=== PATIENT | female | born 1935 | race Caucasian/White ===

== ENCOUNTER 2018-08-13 20:22 | Inpatient (IN) ==
[2018-08-13] MEDS ORDERED: Acetaminophen 325 MG Tablet PO ONE (20:52)
[2018-08-13] MEDS ORDERED: MethylPREDNISolone Sod Succinate Inj 125 MG/2 ML Vial IV.PUSH ONE (20:55)
[2018-08-13] MEDS ORDERED: Sod Chloride 0.9% Inj 1,000 ML IV.SIG SCH (21:00)
--- NOTE | 2018-08-13 21:27 | XR ---
EXAM DATE: 08/13/2018 9:19 PM EST AGE/SEX: 83 years / Female INDICATIONS: Fever. CLINICAL DATA: This is the patient's initial encounter. Patient reports that signs and symptoms have been present for 1 day and indicates a pain score of 2/10. MEDICAL/SURGICAL HISTORY: Chronic obstructive pulmonary disease. Current smoker. None. COMPARISON: [facility] – [place], CHEST SINGLE AP, 05/14/2016. . FINDINGS: Frontal view of the chest demonstrates the lungs to be symmetrically hyperaerated aerated, similar to prior. No focal infiltrates seen. The heart is normal in size. The stylet contours are unremarkable. Osseous structures are intact. CONCLUSION: No acute findings. Hyperaerated lungs, stable. Electronically signed by: Sai Small MD Board Certified Radiologist 08/13/2018 9:26 PM EST
[2018-08-13 21:37] LABS: Baso % (Auto) 0.3 % (0.0-2.0); Eos % (Auto) 0.1 % (0.0-4.0); Hematocrit 43.6 % (35.0-46.0); Hemoglobin 14.8 gm/dL (11.6-15.3); Lymph # (Auto) 0.6 th/mm3 (1.0-4.8); Lymph % (Auto) 3.3 % (9.0-44.0); Mean Corpuscular HGB Conc 33.9 % (32.0-36.0); Mean Corpuscular Hemoglobin 31.8 pg (27.0-34.0); Mean Corpuscular Volume 93.7 fL (80.0-100.0); Mean Platelet Volume 9.6 fL (7.0-11.0); Mono # (Auto) 0.9 th/mm3 (0.0-0.9); Mono % (Auto) 4.7 % (0.0-8.0); Neut % (Auto) 91.6 % (16.0-70.0); Platelet Count 248 th/mm3 (150-450); Red Blood Count 4.66 mil/mm3 (4.00-5.30); Red Cell Distribution Width 14.9 % (11.6-17.2); White Blood Count 18.5 th/mm3 (4.0-11.0)
[2018-08-13 21:38] LABS: Bilirubin,Urine Negative (Negative); Clarity,Urine Clear (Clear); Color,Urine Straw (Yellw/Straw); Glucose,Urine (UA) Negative (Negative); Leukocyte Esterase,Urine Trace (Negative); Mucus,Urine Few /lpf (Occasional); Nitrite,Urine Negative (Negative); Squamous Epithelial Cell,Urine <1 /hpf (0-5)
[2018-08-13] MEDS ORDERED: Aztreonam Inj 2 GM in Sodium Chloride 0.9% Inj 100 ML IV.SIG ONE (21:46)
[2018-08-13] MEDS ORDERED: Vancomycin Inj 1,000 MG in Sodium Chlor 0.9% Inj 250 ML IV.SIG ONE (21:46)
[2018-08-13 21:47] LABS: Albumin 3.8 g/dL (3.4-5.0); Anion Gap 7 meq/L (5-15); Aspartate Aminotransferase 29 U/L (15-37); Blood Urea Nitrogen 13 mg/dL (7-18); Calcium 8.9 mg/dL (8.5-10.1); Carbon Dioxide 27.5 meq/L (21.0-32.0); Chloride 103 meq/L (98-107); Glomerular Filtration Rate 86 mL/min (>89); Glucose,Random 122 mg/dL (74-106); Magnesium 1.9 mg/dL (1.5-2.5); Potassium 3.7 meq/L (3.5-5.1); Sodium 137 meq/L (136-145)
[2018-08-13 21:50] LABS: Alanine Aminotransferase 21 U/L (10-53); Alkaline Phosphatase 85 U/L (45-117); Total Protein 7.5 g/dL (6.4-8.2)
--- NOTE | 2018-08-13 21:55 | ED ---
HPI General Chief Complaint: Fever Stated Complaint: Medical,Evac Time Seen by Provider: 08/13/18 20:46 Source: patient Mode of arrival: EMS Limitations: no limitations History of Present Illness HPI Narrative: 83-year-old female came to the emergency room with history of sudden onset of fever and chills this afternoon. Patient says that continued and she started feeling weak and not well. She called EMS and was brought to the emergency room at approximately 8:30 PM. Patient says she has history of COPD and is a smoker. She has had pneumonia in the past. However patient was feeling fine this morning before the chills started. She was nauseous but did not vomit. No history of diarrhea. Patient does not require oxygen at home. She took her medications including her inhaler this morning. Patient is awake and answering questions appropriately. Her temperature was 101 upon arrival. She is slightly tachycardic. Related Data Home Medications Medication Instructions Recorded Confirmed albuterol sulfate 0.63 mg INHALATION QID PRN 08/13/18 08/13/18 enalapril maleate 20 mg PO DAILY 08/13/18 08/13/18 loiyueazvdr-evqqqwdhi-klykqvqs 1 inh INHALATION DAILY 08/13/18 08/13/18 [Trelegy Ellipta] Previous Rx's Medication Instructions Recorded levofloxacin 750 mg PO DAILY #5 tab 08/17/18 nifedipine 30 mg PO DAILY #30 tab 08/17/18 prednisone 20 mg PO DAILY #7 tab 08/17/18 Allergies Allergy/AdvReac Type Severity Reaction Status Date / Time morphine Allergy Severe CONFUSION Verified 08/13/18 20:29 penicillin G Allergy Mild ITCHING,NATALIA Verified 08/13/18 20:29 H amoxicillin Allergy Itching Verified 08/13/18 20:26 Review of Systems ROS: all other systems reviewed are negative [facility] Medical History Medical History COPD (chronic obstructive pulmonary disease) (Acute) Hypertension (Acute) Social History Social History Substance History: No History of Abuse Second Hand Smoke Exposure: No Smoking Status: Current some day smoker Tobacco Type: Cigarettes How Often Do You Have a Drink Containing Alcohol: Never Immunization History Tetanus Immunization: Unsure Exam Narrative Exam Narrative: GENERAL: Awake, alert, elderly, moderate distress, anxious SKIN: Focused skin assessment warm/dry. HEAD: Atraumatic. Normocephalic. EYES: Pupils equal and round. No scleral icterus. No injection or drainage. ENT: No nasal bleeding or discharge. Mucous membranes pink and moist. NECK: Trachea midline. No JVD. CARDIOVASCULAR: Regular rate and rhythm. No murmur appreciated. RESPIRATORY: No accessory muscle use. Bilateral expiratory wheeze with coarse crackles on the left lower base GASTROINTESTINAL: Abdomen soft, non-tender, nondistended. Hepatic and splenic margins not palpable. MUSCULOSKELETAL: No obvious deformities. No clubbing. No cyanosis. No edema. NEUROLOGICAL: Awake and alert. No obvious cranial nerve deficits. Motor grossly within normal limits. Normal speech. PSYCHIATRIC: Appropriate mood and affect; insight and judgment normal. Course Initial Documented Vital Signs Temperature 101.0 F H 08/13/18 20:30 Pulse Rate 101 H 08/13/18 20:30 Respiratory Rate 16 08/13/18 20:30 Blood Pressure 203/41 H 08/13/18 20:30 Pulse Oximetry 94 L 08/13/18 20:30 Last Documented Vital Signs Temperature 98 F 08/18/18 08:00 Pulse Rate 78 08/18/18 08:00 Respiratory Rate 18 08/18/18 08:00 Blood Pressure 150/91 H 08/18/18 08:00 Pulse Oximetry 98 08/18/18 08:00 Critical Care Time Critical Care Time: Yes Total Critical Care Time: 30 Attestation: Aggregate critical care time was 30 minutes. Time to perform other separately billable procedures was not included in the critical care time. My time did not include minutes spent treating any other patients simultaneously or on activities that did not directly contribute to the patient's treatment. The services I provided to this patient were to treat and/or prevent clinically significant deterioration that could result in: Sepsis, sepsis protocol I provided critical care services requiring my management, as noted below: Chart data review, documentation time, medication orders and management, vital sign assessments/reviewing monitor data, ordering and reviewing lab tests, ordering and interpreting/reviewing x-rays and diagnostic studies, care of the patient and discussion of the patient with the admitting physicians. Medical Decision Making MDM Narrative Medical decision making narrative: 9:52 PM patient was given 2 albuterol treatment, IV Solu-Medrol and IV fluid bolus. Blood test results are back and patient has leukocytosis. However rest of her blood tests including lactic acid is within normal limit. Influenza is negative. Awaiting for UA and chest x-ray. I have started her on IV Azactam and IV vancomycin as per sepsis protocol. Patient has penicillin allergy. Patient will require admission. I discussed this with her and she is okay with that plan. Medical Screen Exam Complete: Yes Emergency Medical Condition: Yes Lab Data Result diagrams: 08/15/18 08:36 08/16/18 06:06 Lab Results 08/13/18 08/13/18 08/13/18 Range/Units 21:00 21:00 21:00 WBC 18.5 H (4.0-11.0) th/mm3 RBC 4.66 (4.00-5.30) mil/mm3 Hgb 14.8 (11.6-15.3) gm/dL Hct 43.6 (35.0-46.0) % MCV 93.7 (80.0-100.0) fL MCH 31.8 (27.0-34.0) pg MCHC 33.9 (32.0-36.0) % RDW 14.9 (11.6-17.2) % Plt Count 248 (150-450) th/mm3 MPV 9.6 (7.0-11.0) fL Neut % (Auto) 91.6 H (16.0-70.0) % Lymph % (Auto) 3.3 L (9.0-44.0) % [place] % (Auto) 4.7 (0.0-8.0) % Eos % (Auto) 0.1 (0.0-4.0) % Baso % (Auto) 0.3 (0.0-2.0) % Neut # (Auto) 17.0 H (1.8-7.7) th/mm3 Lymph # (Auto) 0.6 L (1.0-4.8) th/mm3 [place] # (Auto) 0.9 (0.0-0.9) th/mm3 Eos # (Auto) 0.0 (0.0-0.4) th/mm3 Baso # (Auto) 0.0 (0.0-0.2) th/mm3 WBC Differential . Differential Comment Auto diff final Sodium 137 (136-145) meq/L Potassium 3.7 (3.5-5.1) meq/L Chloride 103 (98-107) meq/L Carbon Dioxide 27.5 (21.0-32.0) meq/L Anion Gap 7 (5-15) meq/L BUN 13 (7-18) mg/dL Creatinine 0.66 (0.50-1.00) mg/dL Estimated GFR 86 L (>89) mL/min Random Glucose 122 H (74-106) mg/dL Lactic Acid 1.0 (0.4-2.0) mmol/L Calcium 8.9 (8.5-10.1) mg/dL Magnesium 1.9 (1.5-2.5) mg/dL Total Bilirubin 0.7 (0.2-1.0) mg/dL AST 29 (15-37) U/L ALT 21 (10-53) U/L Alkaline Phosphatase 85 (45-117) U/L Total Protein 7.5 (6.4-8.2) g/dL Albumin 3.8 (3.4-5.0) g/dL Urine Color (Yellw/Straw) Urine Clarity (Clear) Urine pH (5.0-8.5) Ur Specific [place] (1.002-1.035) Urine Protein (Neg-Trace) mg/dL Urine Glucose (UA) (Negative) mg/dL Urine Ketones (Negative) mg/dL Urine Occult Blood (Negative) Urine Nitrate (Negative) Urine Bilirubin (Negative) Urine Urobilinogen (Less than 2) mg/dL Ur Leukocyte Esterase (Negative) Urine RBC (0-3) /hpf Urine WBC (0-5) /hpf Ur Squamous Epith Cells (0-5) /hpf Urine Mucus (Occasional) /lpf Micro UA Comment Ur Microscopic Review Urine Culture Comments 08/13/18 08/14/18 08/14/18 Range/Units 21:00 09:15 09:15 WBC 23.4 H (4.0-11.0) th/mm3 RBC 4.47 (4.00-5.30) mil/mm3 Hgb 14.2 (11.6-15.3) gm/dL Hct 43.2 (35.0-46.0) % MCV 96.6 (80.0-100.0) fL MCH 31.8 (27.0-34.0) pg MCHC 32.9 (32.0-36.0) % RDW 14.9 (11.6-17.2) % Plt Count 236 (150-450) th/mm3 MPV 9.6 (7.0-11.0) fL Neut % (Auto) 92.6 H (16.0-70.0) % Lymph % (Auto) 3.6 L (9.0-44.0) % [place] % (Auto) 3.6 (0.0-8.0) % Eos % (Auto) 0.0 (0.0-4.0) % Baso % (Auto) 0.2 (0.0-2.0) % Neut # (Auto) 21.7 H (1.8-7.7) th/mm3 Lymph # (Auto) 0.8 L (1.0-4.8) th/mm3 [place] # (Auto) 0.8 (0.0-0.9) th/mm3 Eos # (Auto) 0.0 (0.0-0.4) th/mm3 Baso # (Auto) 0.0 (0.0-0.2) th/mm3 WBC Differential . Differential Comment Auto diff final Sodium 141 (136-145) meq/L Potassium 3.6 (3.5-5.1) meq/L Chloride 111 H D (98-107) meq/L Carbon Dioxide 22.2 (21.0-32.0) meq/L Anion Gap 8 (5-15) meq/L BUN 11 (7-18) mg/dL Creatinine 0.67 (0.50-1.00) mg/dL Estimated GFR 84 L (>89) mL/min Random Glucose 141 H (74-106) mg/dL Lactic Acid (0.4-2.0) mmol/L Calcium 8.1 L D (8.5-10.1) mg/dL Magnesium (1.5-2.5) mg/dL Total Bilirubin 0.9 (0.2-1.0) mg/dL AST 27 (15-37) U/L ALT 25 (10-53) U/L Alkaline Phosphatase 77 (45-117) U/L Total Protein 6.7 D (6.4-8.2) g/dL Albumin 3.0 L D (3.4-5.0) g/dL Urine Color Straw (Yellw/Straw) Urine Clarity Clear (Clear) Urine pH 8.0 (5.0-8.5) Ur Specific [place] 1.010 (1.002-1.035) Urine Protein 30 H (Neg-Trace) mg/dL Urine Glucose (UA) Negative (Negative) mg/dL Urine Ketones Trace H (Negative) mg/dL Urine Occult Blood Negative (Negative) Urine Nitrate Negative (Negative) Urine Bilirubin Negative (Negative) Urine Urobilinogen Less than 2 (Less than 2) mg/dL Ur Leukocyte Esterase Trace H (Negative) Urine RBC 1 (0-3) /hpf Urine WBC 9 H (0-5) /hpf Ur Squamous Epith Cells <1 (0-5) /hpf Urine Mucus Few H (Occasional) /lpf Micro UA Comment Culture not ind Ur Microscopic Review Not Reportable Urine Culture Comments Culture not ind 08/15/18 08/15/18 08/16/18 Range/Units 08:36 08:36 06:06 WBC 14.2 H (4.0-11.0) th/mm3 RBC 3.99 L (4.00-5.30) mil/mm3 Hgb 13.0 (11.6-15.3) gm/dL Hct 38.2 (35.0-46.0) % MCV 95.8 (80.0-100.0) fL MCH 32.7 (27.0-34.0) pg MCHC 34.1 (32.0-36.0) % RDW 14.9 (11.6-17.2) % Plt Count 216 (150-450) th/mm3 MPV 9.6 (7.0-11.0) fL Neut % (Auto) 78.7 H (16.0-70.0) % Lymph % (Auto) 12.7 (9.0-44.0) % [place] % (Auto) 7.7 (0.0-8.0) % Eos % (Auto) 0.5 (0.0-4.0) % Baso % (Auto) 0.4 (0.0-2.0) % Neut # (Auto) 11.1 H (1.8-7.7) th/mm3 Lymph # (Auto) 1.8 (1.0-4.8) th/mm3 [place] # (Auto) 1.1 H (0.0-0.9) th/mm3 Eos # (Auto) 0.1 (0.0-0.4) th/mm3 Baso # (Auto) 0.1 (0.0-0.2) th/mm3 WBC Differential . Differential Comment Auto diff final Sodium 143 (136-145) meq/L Potassium 3.4 L (3.5-5.1) meq/L Chloride 111 H (98-107) meq/L Carbon Dioxide 25.2 (21.0-32.0) meq/L Anion Gap 7 (5-15) meq/L BUN 13 (7-18) mg/dL Creatinine 0.62 0.58 (0.50-1.00) mg/dL Estimated GFR Greater than 89 Greater than 89 (>89) mL/min Random Glucose 90 (74-106) mg/dL Lactic Acid (0.4-2.0) mmol/L Calcium 8.1 L (8.5-10.1) mg/dL Magnesium 1.9 (1.5-2.5) mg/dL Total Bilirubin (0.2-1.0) mg/dL AST (15-37) U/L ALT (10-53) U/L Alkaline Phosphatase (45-117) U/L Total Protein (6.4-8.2) g/dL Albumin (3.4-5.0) g/dL Urine Color (Yellw/Straw) Urine Clarity (Clear) Urine pH (5.0-8.5) Ur Specific [place] (1.002-1.035) Urine Protein (Neg-Trace) mg/dL Urine Glucose (UA) (Negative) mg/dL Urine Ketones (Negative) mg/dL Urine Occult Blood (Negative) Urine Nitrate (Negative) Urine Bilirubin (Negative) Urine Urobilinogen (Less than 2) mg/dL Ur Leukocyte Esterase (Negative) Urine RBC (0-3) /hpf Urine WBC (0-5) /hpf Ur Squamous Epith Cells (0-5) /hpf Urine Mucus (Occasional) /lpf Micro UA Comment Ur Microscopic Review Urine Culture Comments Imaging Data Radiologist's impression: Chest X-Ray 08/13/18 20:52 CONCLUSION: No acute findings. Hyperaerated lungs, stable. ECG Data Attestation: I personally reviewed and interpreted this ECG as follows: Interpretation: Twelve-lead EKG was reviewed by me. Normal sinus rhythm, normal axis, lateral ST segment depression which could be related to LVH, tachycardia. Heart rate of 105 bpm. Discharge Plan Discharge Disposition Patient Disposition: ED Admit(ED Internal Use Only) Discharge Condition Condition: Good Discharge Order Discharge Orders: Discharge Order (Routine); Ordered 08/17/18 Ordered By: Marino Gracia ED Use Only Admit Order (Routine); Ordered 08/13/18 Ordered By: Julio Kennedy Discharge Details Anticipated Discharge Date: 08/17/18 Physicians Team ED Provider: Julio Kennedy Primary Care Provider: Primary Care Sujatha Morales Attending Provider: Marino Gracia Status ED Status: Left Department Discharge Information Discharge Date/Time: 08/14/18 00:40
[2018-08-13] MEDS ORDERED: Vancomycin Consult Pharmacy OTHER PRN (22:23)
[2018-08-13] MEDS ORDERED: Bisacodyl 10 MG Supp RECTAL PRN (22:23)
--- NOTE | 2018-08-13 22:25 | P.HPIM ---
History of Present Illness Primary Care Physician: No Primary Care Physician History of Present Illness: This is an 83-year-old female with a PMH of HTN and COPD who was brought to the ER by EMS secondary to SOB in addition to fever/ chills. Denies cough, chest pain or sick contacts. Reports symptoms started suddenly this morning and have gotten progressively worse throughout the day. On arrival, BP 203/41, HR 101, O2 sat 94% on RA, Temp 101.0. WBC 18.5. Chemistry unremarkable. Lactic Acid 1.0. UA negative. CXR with no acute findings. On exam, pt w/ dyspnea w/ speech, occasional wheezing, few rhonchi. S/p Vanc/Azactam in ER. Diagnosis (1) Sepsis: (2) HTN (hypertension): (3) COPD (chronic obstructive pulmonary disease): Review of Systems PAST FAMILY HISTORY: Reviewed. No h/o DM or CAD Review of Systems: all other systems reviewed are negative [facility] Medical History Medical History COPD (chronic obstructive pulmonary disease) (Acute) Hypertension (Acute) Social History Social History Substance History: No History of Abuse Smoking Status: Current every day smoker Tobacco Type: Cigarettes How Often Do You Have a Drink Containing Alcohol: Monthly or less Immunization History Tetanus Immunization: Unsure Medications and Allergies Allergies Allergy/AdvReac Type Severity Reaction Status Date / Time morphine Allergy Severe CONFUSION Verified 08/13/18 20:29 penicillin G Allergy Mild ITCHING,NATALIA Verified 08/13/18 20:29 H amoxicillin Allergy Itching Verified 08/13/18 20:26 Home Medications Medication Instructions Recorded Confirmed Type albuterol sulfate 0.63 mg INHALATION QID PRN 08/13/18 08/13/18 History enalapril maleate 20 mg PO DAILY 08/13/18 08/13/18 History pjusayazxov-orfbchlmp-gsxuahxt 1 inh INHALATION DAILY 08/13/18 08/13/18 History [Trelequinn Ellipta] Active Medications: Active Medications Vancomycin HCl 1,000 mg/ (Sodium Chloride) 250 mls @ 250 mls/hr IV.SIG ONCE ONE Stop: 08/13/18 22:45 Physical Exam Vital signs: Vital Signs 08/13/18 20:30 08/13/18 21:33 08/13/18 22:00 Temperature 101.0 F H Pulse Rate 101 H 98 H 101 H Respiratory Rate 16 22 19 Blood Pressure 203/41 H 198/95 H Pulse Oximetry 94 L 96 Intake & Output 08/13/18 08/13/18 08/14/18 06:59 18:59 06:59 Weight 48.988 kg Narrative: PE: GENERAL: Pleasant elderly white female in no acute distress. +dyspnea with speech and movement. SKIN: Focused skin assessment warm and dry. HEENT: PERRLA, EOMI. No scleral icterus or conjunctival pallor. No lid lag or facial droop. CARDIOVASCULAR: Regular rate and rhythm. No obvious murmurs to auscultation. No chest tenderness to palpation. RESPIRATORY: Few scattered rhonchi, occasional wheezing. Breath sounds equal bilaterally. GASTROINTESTINAL: Abdomen soft, non-tender, nondistended. BS normal. MUSCULOSKELETAL: Extremities without clubbing, cyanosis, or edema. No obvious deformities. NEUROLOGICAL: Awake, alert and oriented x4. No focal neurologic deficits. Moving both upper and lower extremities spontaneously. PSYCHIATRIC: Appropriate mood and affect. Insight and judgment normal. Results Labs CBC & Chem 7: 08/13/18 21:00 08/13/18 21:00 Imaging Impressions Chest X-Ray 08/13/18 20:52 CONCLUSION: No acute findings. Hyperaerated lungs, stable. Caprini VTE Risk Assessment Caprini VTE Risk Assessment: No/Low Risk (score <= 1) Caprini Risk Assessment Model: Point Value = 1 Point Value = 2 Point Value = 3 Point Value = 5 Age 41-60 Minor surgery BMI > 25 kg/m2 Swollen legs Varicose veins or History of unexplained or recurrent spontaneous Oral contraceptives or hormone replacement Sepsis (< 1 month) Serious lung disease, including pneumonia (< 1 month) Abnormal pulmonary function Acute myocardial infarction Congestive heart failure (< 1 month) History of inflammatory bowel disease Medical patient at bed rest Age 61-74 Arthroscopic surgery Major open surgery (> 45 min) Laparoscopic surgery (> 45 min) Malignancy Confined to bed (> 72 hours) Immobilizing plaster cast Central venous access Age >= 75 History of VTE Family history of VTE Factor V Leiden Prothrombin [id number] Lupus anticoagulant Anticardiolipin antibodies Elevated serum homocysteine Heparin-induced thrombocytopenia Other congenital or acquired thrombophilia Stroke (< 1 month) Elective arthroplasty Hip, pelvis, or leg fracture Acute spinal cord injury (< 1 month) Prophylaxis Regimen: Total Risk Factor Score Risk Level Prophylaxis Regimen 0-1 Low Early ambulation 2 Moderate Order ONE of the following: *Sequential Compression Device (SCD) *Heparin 5000 units SQ BID 3-4 Higher Order ONE of the following medications: *Heparin 5000 units SQ TID *Enoxaparin/Lovenox 40 mg SQ daily (WT < 150 kg, CrCl > 30 mL/min) *Enoxaparin/Lovenox 30 mg SQ daily (WT < 150 kg, CrCl > 10-29 mL/min) *Enoxaparin/Lovenox 30 mg SQ BID (WT < 150 kg, CrCl > 30 mL/min) AND/OR *Sequential Compression Device (SCD) 5 or more Highest Order ONE of the following medications: *Heparin 5000 units SQ TID (Preferred with Epidurals) *Enoxaparin/Lovenox 40 mg SQ daily (WT < 150 kg, CrCl > 30 mL/min) *Enoxaparin/Lovenox 30 mg SQ daily (WT < 150 kg, CrCl > 10-29 mL/min) *Enoxaparin/Lovenox 30 mg SQ BID (WT < 150 kg, CrCl > 30 mL/min) AND *Sequential Compression Device (SCD) Assessment and Plan (1) Sepsis: Code(s): A41.9 - Sepsis, unspecified organism Status: Acute (2) HTN (hypertension): Code(s): I10 - Essential (primary) hypertension Status: Acute (3) COPD (chronic obstructive pulmonary disease): Code(s): J44.9 - Chronic obstructive pulmonary disease, unspecified Status: Acute Plan A/P: 1. Sepsis: Temp 101.0, HR 101, WBC 18, Source-unclear, suspect underlying PNA in light of symptoms however CXR essentially clear. S/p Vanc/Azactam, follow up blood cultures, continue IV Abx, IVF for hydration. 2. COPD: Chronic Respiratory Failure w/ Acute Exacerbation, Moderate. + wheezing on exam, continue DuoNeb, home MDI, monitor O2. 3. HTN: Uncontrolled, BP 200's systolic on arrival, antihypertensives as needed for BP >180, monitor BP 4. DVT Prophylaxis: SCD/Teds 5. Social work for d/c planning as needed. 6. Case discussed w/ ER physician at length, labs/records/imaging reviewed by me.
[2018-08-13] MEDS ORDERED: Metoprolol Inj 5 MG/5 ML Vial IV.PUSH ONE (22:57)
[2018-08-13] MEDS: Sod Chloride 0.9% Inj 1,000 ML IV.CONT SCH (23:46)
[2018-08-14] MEDS: Sod Chloride 0.9% Inj 1,000 ML IV.CONT SCH ×2 (08:52→18:08)
[2018-08-14] MEDS: guaiFENesin 600 MG ER Tablet PO SCH ×2 (08:52→21:00)
[2018-08-14] MEDS: Senna/Docusate Sodium 8.6/50 MG Tablet PO SCH ×2 (08:53→21:00)
[2018-08-14] MEDS ORDERED: TRELEGY ELLIPTA PO SCH (09:00)
[2018-08-14 10:45] LABS: Baso % (Auto) 0.2 % (0.0-2.0); Hematocrit 43.2 % (35.0-46.0); Hemoglobin 14.2 gm/dL (11.6-15.3); Lymph # (Auto) 0.8 th/mm3 (1.0-4.8); Lymph % (Auto) 3.6 % (9.0-44.0); Mean Corpuscular HGB Conc 32.9 % (32.0-36.0); Mean Corpuscular Hemoglobin 31.8 pg (27.0-34.0); Mean Corpuscular Volume 96.6 fL (80.0-100.0); Mean Platelet Volume 9.6 fL (7.0-11.0); Mono # (Auto) 0.8 th/mm3 (0.0-0.9); Mono % (Auto) 3.6 % (0.0-8.0); Neut # (Auto) 21.7 th/mm3 (1.8-7.7); Neut % (Auto) 92.6 % (16.0-70.0); Platelet Count 236 th/mm3 (150-450); Red Blood Count 4.47 mil/mm3 (4.00-5.30); Red Cell Distribution Width 14.9 % (11.6-17.2); White Blood Count 23.4 th/mm3 (4.0-11.0)
[2018-08-14 11:22] LABS: Alanine Aminotransferase 25 U/L (10-53); Alkaline Phosphatase 77 U/L (45-117); Anion Gap 8 meq/L (5-15); Aspartate Aminotransferase 27 U/L (15-37); Blood Urea Nitrogen 11 mg/dL (7-18); Calcium 8.1 mg/dL (8.5-10.1); Carbon Dioxide 22.2 meq/L (21.0-32.0); Chloride 111 meq/L (98-107); Glomerular Filtration Rate 84 mL/min (>89); Glucose,Random 141 mg/dL (74-106); Potassium 3.6 meq/L (3.5-5.1); Sodium 141 meq/L (136-145); Total Protein 6.7 g/dL (6.4-8.2)
--- NOTE | 2018-08-14 12:06 | ECG ---
Date Performed: 08/13/2018 Time Performed: 21:05:38 PTAGE: 83 years EKG: ABNORMAL ECG UNDERLYING RHYTHM IS NORMAL SINUS WITH OCCASIONAL PVS PRESENT- INFEROLATERAL ISCHEMIC CHANGES ARE PRESENT Clinical correlation is recommended PREVIOUS TRACING : 05/14/2016 17.44 DOCTOR: Brandon Forde Interpretating Date/Time 08/14/2018 12:04:28
[2018-08-14] MEDS: VILANTEROL INH SCH (13:44)
[2018-08-14] MEDS: FLUTICASONE FUROATE INH SCH (13:44)
[2018-08-14] MEDS: UMECLIDINIUM INH SCH (13:44)
--- NOTE | 2018-08-14 15:51 | P.PNIM ---
Subjective Interval history: Patient laying down in bed. She says she feels better than when she first arrived to the hospital. She says she does not have chills anymore. No other complaints. Physical Exam Vital signs: Vital Signs 08/13/18 20:30 08/13/18 21:33 08/13/18 22:00 Temperature 101.0 F H Pulse Rate 101 H 98 H 101 H Respiratory Rate 16 22 19 Blood Pressure 203/41 H 198/95 H Pulse Oximetry 94 L 96 08/13/18 22:23 08/13/18 23:02 08/13/18 23:50 Temperature 98.6 F Pulse Rate 77 96 H 77 Respiratory Rate 18 18 Blood Pressure 165/73 H Pulse Oximetry 99 98 08/14/18 00:00 08/14/18 02:00 08/14/18 04:00 Temperature 97.4 F L 97.5 F L Pulse Rate 80 72 77 Respiratory Rate 18 18 Blood Pressure 164/86 H 141/67 H Pulse Oximetry 94 L 93 L 08/14/18 08:00 08/14/18 12:00 Temperature 98 F 97.4 F L Pulse Rate 87 78 Respiratory Rate 18 18 Blood Pressure 140/71 176/72 H Pulse Oximetry 93 L 93 L Intake & Output 08/13/18 08/14/18 08/14/18 18:59 06:59 18:59 Intake Total 1900 / 1900 650 / 650 Balance 1900 / 1900 650 / 650 Weight 53 kg Intake: IV 1900 / 1900 650 / 650 NS Inj 1,000 ML @ 100 mls/hr IV 450 / 450 550 / 550 .CONT .Q10H JAN Rx#:[id number] Azactam Inj 1,000 MG In NS Inj 100 / 100 100 / 100 100 ML @ 200 mls/hr IV.SIG Q8H JAN Rx#:[id number] Azactam Inj 2 GM In NS Inj 100 100 / 100 ML @ 200 mls/hr IV.SIG ONCE ONE Rx#:[id number] NS Inj 1,000 ML @ 1000 mls/hr 1000 / 1000 IV.SIG BOLUS JAN Rx#:[id number] Vancomycin Inj 1,000 MG In NS 250 / 250 Inj 250 ML @ 250 mls/hr IV.SIG ONCE ONE Rx#:[id number] Other: Weight On Admission 53 kg Narrative: General patient complains of a mild cough. HEENT extraocular movements are intact, clear oropharyngeal mucosa, no JVD Cardiovascular S1-S2 audible, RRR, no murmurs rubs or gallops Respiratory mild wheezing on auscultation bilaterally Abdomen soft, nontender, nondistended, normal bowel sounds Extremities no edema 2+ distal pulses in bilateral upper and lower extremities Neuro no focal neurological deficits. Results - Labs CBC & Chem 7: 08/14/18 09:15 08/14/18 09:15 Laboratory Results - last 24 hr 08/13/18 08/13/18 08/13/18 21:00 21:00 21:00 WBC 18.5 H RBC 4.66 Hgb 14.8 Hct 43.6 MCV 93.7 MCH 31.8 MCHC 33.9 RDW 14.9 Plt Count 248 MPV 9.6 Neut % (Auto) 91.6 H Lymph % (Auto) 3.3 L [place] % (Auto) 4.7 Eos % (Auto) 0.1 Baso % (Auto) 0.3 Neut # (Auto) 17.0 H Lymph # (Auto) 0.6 L [place] # (Auto) 0.9 Eos # (Auto) 0.0 Baso # (Auto) 0.0 WBC Differential . Differential Comment Auto diff final Sodium 137 Potassium 3.7 Chloride 103 Carbon Dioxide 27.5 Anion Gap 7 BUN 13 Creatinine 0.66 Estimated GFR 86 L Random Glucose 122 H Lactic Acid 1.0 Calcium 8.9 Magnesium 1.9 Total Bilirubin 0.7 AST 29 ALT 21 Alkaline Phosphatase 85 Total Protein 7.5 Albumin 3.8 Urine Color Urine Clarity Urine pH Ur Specific [place] Urine Protein Urine Glucose (UA) Urine Ketones Urine Occult Blood Urine Nitrate Urine Bilirubin Urine Urobilinogen Ur Leukocyte Esterase Urine RBC Urine WBC Ur Squamous Epith Cells Urine Mucus Micro UA Comment Ur Microscopic Review Urine Culture Comments 08/13/18 08/14/18 08/14/18 21:00 09:15 09:15 WBC 23.4 H RBC 4.47 Hgb 14.2 Hct 43.2 MCV 96.6 MCH 31.8 MCHC 32.9 RDW 14.9 Plt Count 236 MPV 9.6 Neut % (Auto) 92.6 H Lymph % (Auto) 3.6 L [place] % (Auto) 3.6 Eos % (Auto) 0.0 Baso % (Auto) 0.2 Neut # (Auto) 21.7 H Lymph # (Auto) 0.8 L [place] # (Auto) 0.8 Eos # (Auto) 0.0 Baso # (Auto) 0.0 WBC Differential . Differential Comment Auto diff final Sodium 141 Potassium 3.6 Chloride 111 H D Carbon Dioxide 22.2 Anion Gap 8 BUN 11 Creatinine 0.67 Estimated GFR 84 L Random Glucose 141 H Lactic Acid Calcium 8.1 L D Magnesium Total Bilirubin 0.9 AST 27 ALT 25 Alkaline Phosphatase 77 Total Protein 6.7 D Albumin 3.0 L D Urine Color Straw Urine Clarity Clear Urine pH 8.0 Ur Specific [place] 1.010 Urine Protein 30 H Urine Glucose (UA) Negative Urine Ketones Trace H Urine Occult Blood Negative Urine Nitrate Negative Urine Bilirubin Negative Urine Urobilinogen Less than 2 Ur Leukocyte Esterase Trace H Urine RBC 1 Urine WBC 9 H Ur Squamous Epith Cells <1 Urine Mucus Few H Micro UA Comment Culture not ind Ur Microscopic Review Not Reportable Urine Culture Comments Culture not ind Microbiology 08/13/18 21:05 Blood - Peripheral Aerobic Blood Culture - Preliminary No growth in 1 day 08/13/18 21:05 Blood - Peripheral Anaerobic Blood Culture - Preliminary No growth in 1 day 08/13/18 21:00 Blood - Peripheral Aerobic Blood Culture - Preliminary No growth in 1 day 08/13/18 21:00 Blood - Peripheral Anaerobic Blood Culture - Preliminary No growth in 1 day 08/13/18 21:00 Nasal Wash Influenza Types A,B Antigen - Final Negative for FLU A and B antigen Infection due to influenza A or B cannot be ruled out since the antigen present in the sample may be below the detection limit of the test. - Imaging Impressions Chest X-Ray 08/13/18 20:52 CONCLUSION: No acute findings. Hyperaerated lungs, stable. Assessment and Plan - Assessment (1) Sepsis Code(s): A41.9 - Sepsis, unspecified organism Status: Acute (2) HTN (hypertension) Code(s): I10 - Essential (primary) hypertension Status: Acute (3) COPD (chronic obstructive pulmonary disease) Code(s): J44.9 - Chronic obstructive pulmonary disease, unspecified Status: Acute - Plan This patient is an 83-year-old female with a diagnosis of hypertension, COPD. The patient was brought in to the emergency department with fevers and chills. Patient has been complaining of a cough and also has some shortness of breath on arrival. 1. Systemic inflammatory response syndrome likely secondary to COPD exacerbation. Patient presented with fever and was found to be tachycardic with an elevated WBC count. She has some wheezing on physical examination. She also had an O2 saturation around 93%. She was started on supplemental oxygen. She was given IV steroids in the emergency department, will continue IV steroids for today. Chest x-ray was done which is not show any findings consistent with pneumonia however does show hyperinflation Continue IV antibiotics, patient has been afebrile now since yesterday. WBC count is elevated around 23,000 however patient is on IV steroids. Continue breathing treatments [id number]. We will titrate off of supplemental oxygen, keep O2 saturations above 92%. We will continue monitor the patient closely. 2. Hypertension Patient has an elevated systolic blood pressure. She takes enalapril at home. This medication will be started today. We will continue to monitor blood pressure and adjust her medications as needed 3. Tobacco smoking Approximately 5 minutes was spent counseling the patient is cessation techniques. Understands continuing to smoke could lead to stroke and , worsening of COPD. Benefits of stopping also presented to the patient. Patient verbalized desire to "give it a try" regarding smoking cessation and its benefits. Case discussed the patient's nurse at bedside.
[2018-08-14] MEDS: Vancomycin Inj 1,000 MG in Sodium Chlor 0.9% Inj 250 ML IV.SIG SCH (22:04)
[2018-08-15] MEDS: Sod Chloride 0.9% Inj 1,000 ML IV.CONT SCH ×2 (05:25→17:55)
[2018-08-15] MEDS: UMECLIDINIUM INH SCH (09:13)
[2018-08-15] MEDS: VILANTEROL INH SCH (09:13)
[2018-08-15] MEDS: FLUTICASONE FUROATE INH SCH (09:13)
[2018-08-15] MEDS: Enoxaparin Inj 40 MG/0.4 ML Syringe SQ SCH (09:14)
[2018-08-15] MEDS: guaiFENesin 600 MG ER Tablet PO SCH ×2 (09:14→21:54)
[2018-08-15] MEDS: Senna/Docusate Sodium 8.6/50 MG Tablet PO SCH ×2 (09:15→21:55)
[2018-08-15 09:47] LABS: Baso # (Auto) 0.1 th/mm3 (0.0-0.2); Baso % (Auto) 0.4 % (0.0-2.0); Eos # (Auto) 0.1 th/mm3 (0.0-0.4); Eos % (Auto) 0.5 % (0.0-4.0); Hematocrit 38.2 % (35.0-46.0); Lymph # (Auto) 1.8 th/mm3 (1.0-4.8); Lymph % (Auto) 12.7 % (9.0-44.0); Mean Corpuscular HGB Conc 34.1 % (32.0-36.0); Mean Corpuscular Hemoglobin 32.7 pg (27.0-34.0); Mean Corpuscular Volume 95.8 fL (80.0-100.0); Mean Platelet Volume 9.6 fL (7.0-11.0); Mono # (Auto) 1.1 th/mm3 (0.0-0.9); Mono % (Auto) 7.7 % (0.0-8.0); Neut # (Auto) 11.1 th/mm3 (1.8-7.7); Neut % (Auto) 78.7 % (16.0-70.0); Platelet Count 216 th/mm3 (150-450); Red Blood Count 3.99 mil/mm3 (4.00-5.30); Red Cell Distribution Width 14.9 % (11.6-17.2); White Blood Count 14.2 th/mm3 (4.0-11.0)
[2018-08-15 10:16] LABS: Anion Gap 7 meq/L (5-15); Blood Urea Nitrogen 13 mg/dL (7-18); Calcium 8.1 mg/dL (8.5-10.1); Carbon Dioxide 25.2 meq/L (21.0-32.0); Chloride 111 meq/L (98-107); Glomerular Filtration Rate Greater Than 89 mL/min (>89); Glucose,Random 90 mg/dL (74-106); Magnesium 1.9 mg/dL (1.5-2.5); Potassium 3.4 meq/L (3.5-5.1); Sodium 143 meq/L (136-145)
--- NOTE | 2018-08-15 15:38 | P.PNIM ---
Subjective Interval history: Patient starting to feel better. No other complaints. Physical Exam Vital signs: Vital Signs 08/14/18 16:00 08/14/18 20:00 08/15/18 00:00 Temperature 98.1 F 97.5 F L Pulse Rate 72 83 66 Respiratory Rate 18 18 Blood Pressure 157/70 H 166/76 H Pulse Oximetry 95 97 08/15/18 02:56 08/15/18 04:00 08/15/18 08:00 Temperature 97.8 F 98.0 F Pulse Rate 78 85 78 Respiratory Rate 18 18 Blood Pressure 152/74 H 148/72 H Pulse Oximetry 94 L 100 08/15/18 12:00 Temperature Pulse Rate 71 Respiratory Rate 18 Blood Pressure 140/76 Pulse Oximetry 98 Intake & Output 08/14/18 08/15/18 08/15/18 18:59 06:59 18:59 Intake Total 2129 / 2129 Balance 2129 / 2129 Weight 55 kg Intake: IV 1650 / 1650 1490 / 1490 NS Inj 1,000 ML @ 84 mls/hr IV. 1550 / 1550 1040 / 1040 CONT .[id number] JAN Rx#:[id number] Azactam Inj 1,000 MG In NS Inj 100 / 100 200 / 200 100 ML @ 200 mls/hr IV.SIG Q8H JAN Rx#:[id number] Vancomycin Inj 1,000 MG In NS 250 / 250 Inj 250 ML @ 250 mls/hr IV.SIG Q24H JAN Rx#:[id number] Oral 480 / 480 540 / 540 Other: # Voids 4 1 # Bowel Movements 0 Narrative: General patient complains of a mild cough, improving HEENT extraocular movements are intact, clear oropharyngeal mucosa, no JVD Cardiovascular S1-S2 audible, RRR, no murmurs rubs or gallops Respiratory mild wheezing on auscultation bilaterally Abdomen soft, nontender, nondistended, normal bowel sounds Extremities no edema 2+ distal pulses in bilateral upper and lower extremities Neuro no focal neurological deficits. Results - Labs CBC & Chem 7: 08/15/18 08:36 08/15/18 08:36 Laboratory Results - last 24 hr 08/15/18 08/15/18 08:36 08:36 WBC 14.2 H RBC 3.99 L Hgb 13.0 Hct 38.2 MCV 95.8 MCH 32.7 MCHC 34.1 RDW 14.9 Plt Count 216 MPV 9.6 Neut % (Auto) 78.7 H Lymph % (Auto) 12.7 [place] % (Auto) 7.7 Eos % (Auto) 0.5 Baso % (Auto) 0.4 Neut # (Auto) 11.1 H Lymph # (Auto) 1.8 [place] # (Auto) 1.1 H Eos # (Auto) 0.1 Baso # (Auto) 0.1 WBC Differential . Differential Comment Auto diff final Sodium 143 Potassium 3.4 L Chloride 111 H Carbon Dioxide 25.2 Anion Gap 7 BUN 13 Creatinine 0.62 Estimated GFR Greater than 89 Random Glucose 90 Calcium 8.1 L Magnesium 1.9 Microbiology 08/13/18 21:05 Blood - Peripheral Aerobic Blood Culture - Preliminary No growth in 2 days 08/13/18 21:05 Blood - Peripheral Anaerobic Blood Culture - Preliminary No growth in 2 days 08/13/18 21:00 Blood - Peripheral Aerobic Blood Culture - Preliminary No growth in 2 days 08/13/18 21:00 Blood - Peripheral Anaerobic Blood Culture - Preliminary No growth in 2 days Assessment and Plan - Assessment (1) Sepsis Code(s): A41.9 - Sepsis, unspecified organism Status: Acute (2) HTN (hypertension) Code(s): I10 - Essential (primary) hypertension Status: Acute (3) COPD (chronic obstructive pulmonary disease) Code(s): J44.9 - Chronic obstructive pulmonary disease, unspecified Status: Acute - Plan This patient is an 83-year-old female with a diagnosis of hypertension, COPD. The patient was brought in to the emergency department with fevers and chills. Patient has been complaining of a cough and also has some shortness of breath on arrival. 1. Systemic inflammatory response syndrome likely secondary to COPD exacerbation. Patient presented with fever and was found to be tachycardic with an elevated WBC count. Still has wheezing on physical examination. She was started on supplemental oxygen. She was given IV steroids in the emergency department, will continue IV steroids for today. Chest x-ray was done which is not show any findings consistent with pneumonia however does show hyperinflation Continue IV antibiotics, patient has been afebrile now since yesterday. Transition to PO antibiotics and likely discharge tomorrow. WBC count is downtrending. Continue breathing treatments [id number]. We will titrate off of supplemental oxygen, keep O2 saturations above 92%. Once ready for discharge patient will likely need PFTs outpt. Start symbicort. 2. Hypertension Continue enalapril. 3. Tobacco smoking Pt advised to stop smoking. Case discussed the patient's nurse at bedside.
--- NOTE | 2018-08-15 19:39 | MB ---
cc: Merari Gage MD DATE: 08/15/2018 REASON FOR CONSULTATION: COPD exacerbation. HISTORY OF PRESENT ILLNESS: The patient is an 83-year-old female who has a known history of severe COPD, who presents to the emergency room with a fever and chills and feeling very cold. The patient had no cough, no expectoration, no fever, no chills, no hemoptysis; however, she was with worsening shortness of breath and normal chest x-ray. The patient does have a long smoking history; however, she has not smoked for many years. Her son was visiting last week and she started to smoke with him, after which her symptomatology had started. Her shortness of breath has improved since admission and she is starting to feel better at this time. PAST MEDICAL HISTORY: 1. Severe chronic obstructive pulmonary disease. 2. Hypertension. FAMILY HISTORY: Noncontributory. REVIEW OF SYSTEMS: A 12-point review of systems as per HPI and past history, otherwise negative. SOCIAL HISTORY: The patient has not smoked for many years. Attempted smoking recently with worsening shortness of breath. There is no alcohol socially. Does not use drugs. ALLERGIES: MORPHINE, PENICILLIN. CURRENT MEDICATIONS: Include nebulized albuterol and ipratropium, Symbicort, Vasotec, Lovenox prophylaxis, guaifenesin, Trelegy Ellipta, as well as antibiotic therapy. PHYSICAL EXAMINATION: VITAL SIGNS: Temperature 98, pulse 80, respirations 18, blood pressure 140/74. HEENT: Unremarkable. Eyes without icterus. NECK: Without adenopathy or thyroid enlargement. Central trachea. CHEST: A few scattered rhonchi audible. CARDIAC: PMI not appreciated. S1, S2 audible. No murmur. No rub. ABDOMEN: Lax. Audible bowel sounds. PSYCHIATRIC: No clubbing, cyanosis or edema. LABORATORY DATA: White count 14,000, hemoglobin 13, hematocrit 38, platelets 216,000. Sodium 143, potassium 3.4, BUN 13, creatinine 0.6. Chest x-ray: No acute infiltrate. IMPRESSION: 1. Chronic obstructive pulmonary disease exacerbation. 2. Question viral syndrome. 3. Hypertension. PLAN: The patient has been started on antibiotic therapy and appropriately so. Bronchodilators will be continued. If she continues to improve, may be changed to oral therapy. Her blood cultures have been all negative. I do thank you for asking me to partake in Alyse Siddhartha's care. Merari Gage MD WWW/ll , 05:31 PM , 05:39 PM
[2018-08-15] MEDS ORDERED: Melatonin 5 MG Tablet PO ONE (21:00)
[2018-08-15] MEDS: Budesonide-Formoterol 80/4.5 MCG 6.9 GM Inhaler INH SCH (21:56)
[2018-08-15] MEDS: Vancomycin Inj 1,000 MG in Sodium Chlor 0.9% Inj 250 ML IV.SIG SCH (23:44)
[2018-08-16] MEDS: Sod Chloride 0.9% Inj 1,000 ML IV.CONT SCH (06:01)
[2018-08-16 07:46] LABS: Glomerular Filtration Rate Greater Than 89 mL/min (>89)
[2018-08-16] MEDS: Senna/Docusate Sodium 8.6/50 MG Tablet PO SCH ×2 (09:04→21:39)
[2018-08-16] MEDS: Budesonide-Formoterol 80/4.5 MCG 6.9 GM Inhaler INH SCH (09:04)
[2018-08-16] MEDS: FLUTICASONE FUROATE INH SCH (09:05)
[2018-08-16] MEDS: guaiFENesin 600 MG ER Tablet PO SCH ×2 (09:05→21:38)
[2018-08-16] MEDS: UMECLIDINIUM INH SCH (09:05)
[2018-08-16] MEDS: Enoxaparin Inj 40 MG/0.4 ML Syringe SQ SCH (09:05)
[2018-08-16] MEDS: VILANTEROL INH SCH (09:05)
--- NOTE | 2018-08-16 09:27 | P.PN ---
Subjective Interval history: ALERT NO SOB AT REST Physical Exam Vital signs: Vital Signs 08/15/18 12:00 08/15/18 16:00 08/15/18 20:00 Temperature 98.1 F 98.4 F Pulse Rate 68 81 82 Respiratory Rate 18 20 18 Blood Pressure 140/76 160/80 H 126/76 Pulse Oximetry 98 99 97 08/16/18 00:00 08/16/18 04:00 08/16/18 08:00 Temperature 97.9 F 98.0 F 98.1 F Pulse Rate 77 69 74 Respiratory Rate 18 20 18 Blood Pressure 180/70 H 140/65 146/76 H Pulse Oximetry 96 97 99 Intake & Output 08/15/18 08/16/18 08/16/18 18:59 06:59 18:59 Intake Total 1060 / 1060 1610 / 1610 Output Total 1500 / 1500 Balance -440 / -440 1610 / 1610 Weight 54.7 kg Intake: IV 1060 / 1060 1450 / 1450 NS Inj 1,000 ML @ 84 mls/hr IV. 960 / 960 1000 / 1000 CONT .[id number] JAN Rx#:[id number] Azactam Inj 1,000 MG In NS Inj 100 / 100 200 / 200 100 ML @ 200 mls/hr IV.SIG Q8H JAN Rx#:[id number] Vancomycin Inj 1,000 MG In NS 250 / 250 Inj 250 ML @ 250 mls/hr IV.SIG Q24H JAN Rx#:[id number] Oral 160 / 160 Output: Urine 1500 / 1500 Other: # Voids 4 - Constitutional no acute distress - Routine HEENT Exam Head: Present: normocephalic Eye: Present: EOMI, PERRL - Routine Neck Exam Present: supple, full ROM - Routine Respiratory Exam Present: CTA bilaterally - Routine Cardiovascular Exam Present: RRR, S1 - Routine Abdominal Exam Present: soft, normoactive bowel sounds - Routine Skin Exam Present: intact - Routine Neurological Exam Present: alert, oriented X3 Results - Labs CBC & Chem 7: 08/15/18 08:36 08/16/18 06:06 Laboratory Results - last 24 hr 08/15/18 08/15/18 08/16/18 08:36 08:36 06:06 WBC 14.2 H RBC 3.99 L Hgb 13.0 Hct 38.2 MCV 95.8 MCH 32.7 MCHC 34.1 RDW 14.9 Plt Count 216 MPV 9.6 Neut % (Auto) 78.7 H Lymph % (Auto) 12.7 [place] % (Auto) 7.7 Eos % (Auto) 0.5 Baso % (Auto) 0.4 Neut # (Auto) 11.1 H Lymph # (Auto) 1.8 [place] # (Auto) 1.1 H Eos # (Auto) 0.1 Baso # (Auto) 0.1 WBC Differential . Differential Comment Auto diff final Sodium 143 Potassium 3.4 L Chloride 111 H Carbon Dioxide 25.2 Anion Gap 7 BUN 13 Creatinine 0.62 0.58 Estimated GFR Greater than 89 Greater than 89 Random Glucose 90 Calcium 8.1 L Magnesium 1.9 Microbiology 08/13/18 21:05 Blood - Peripheral Aerobic Blood Culture - Preliminary No growth in 2 days 08/13/18 21:05 Blood - Peripheral Anaerobic Blood Culture - Preliminary No growth in 2 days 08/13/18 21:00 Blood - Peripheral Aerobic Blood Culture - Preliminary No growth in 2 days 08/13/18 21:00 Blood - Peripheral Anaerobic Blood Culture - Preliminary No growth in 2 days Assessment and Plan - Plan COPD EXCERBATION SEPSIS, RESOLVED PLAN CONTINUE O2 BRONCHODILATOR THERAPY PO ANTIBX HOPEFULLY HOME AM IF STABLE
[2018-08-16] MEDS: levoFLOXacin 750 MG Tablet PO SCH (11:13)
[2018-08-16] MEDS: predniSONE 20 MG Tablet PO SCH (12:58)
[2018-08-16] MEDS ORDERED: Pharmacy Ordered Lab Info OTHER ONE (22:45)
--- NOTE | 2018-08-16 23:30 | P.PNIM ---
Subjective Interval history: Follow up for COPD exacerbation, Hypertension. Patient is doing well, resting in bed. No acute concerns. No fever, chills. Currently on nasal cannula. Physical Exam Vital signs: Vital Signs 08/16/18 00:00 08/16/18 04:00 08/16/18 08:00 Temperature 97.9 F 98.0 F 98.1 F Pulse Rate 77 69 77 Respiratory Rate 18 20 18 Blood Pressure 180/70 H 140/65 146/76 H Pulse Oximetry 96 97 99 Pulse Oximetry [Exertion on Room Air] Pulse Oximetry [Exertion with Oxygen] Pulse Oximetry [Resting on Room Air] Pulse Oximetry [Resting with Oxygen] 08/16/18 12:00 08/16/18 12:32 08/16/18 16:00 Temperature 98.1 F 99.1 F Pulse Rate 75 80 75 Respiratory Rate 17 16 17 Blood Pressure 174/81 H 173/82 H Pulse Oximetry 98 98 Pulse Oximetry [Exertion on Room Air] Pulse Oximetry [Exertion with Oxygen] Pulse Oximetry [Resting on Room Air] Pulse Oximetry [Resting with Oxygen] 08/16/18 16:12 08/16/18 19:50 08/16/18 20:00 Temperature 97.7 F Pulse Rate 82 86 Respiratory Rate 16 17 Blood Pressure 157/73 H Pulse Oximetry 97 96 Pulse Oximetry [Exertion on Room Air] 87 L Pulse Oximetry [Exertion with Oxygen] 95 Pulse Oximetry [Resting on Room Air] 91 L Pulse Oximetry [Resting with Oxygen] 97 Intake & Output 08/16/18 08/16/18 08/17/18 06:59 18:59 06:59 Intake Total 1610 / 1610 720 / 720 Output Total 400 / 400 Balance 1610 / 1610 320 / 320 Weight 54.7 kg Intake: IV 1450 / 1450 NS Inj 1,000 ML @ 84 mls/hr IV. 1000 / 1000 CONT .[id number] JAN Rx#:[id number] Azactam Inj 1,000 MG In NS Inj 200 / 200 100 ML @ 200 mls/hr IV.SIG Q8H JAN Rx#:[id number] Vancomycin Inj 1,000 MG In NS 250 / 250 Inj 250 ML @ 250 mls/hr IV.SIG Q24H JAN Rx#:[id number] Oral 160 / 160 720 / 720 Output: Urine 400 / 400 Other: # Voids 4 # Bowel Movements 0 Narrative: General patient complains of a mild cough, improving HEENT extraocular movements are intact, clear oropharyngeal mucosa, no JVD Cardiovascular S1-S2 audible, RRR, no murmurs rubs or gallops Respiratory mild wheezing on auscultation bilaterally Abdomen soft, nontender, nondistended, normal bowel sounds Extremities no edema 2+ distal pulses in bilateral upper and lower extremities Neuro no focal neurological deficits. Results Labs CBC & Chem 7: 08/15/18 08:36 08/16/18 06:06 Labs: Microbiology 08/13/18 21:05 Blood - Peripheral Aerobic Blood Culture - Preliminary No growth in 3 days 08/13/18 21:05 Blood - Peripheral Anaerobic Blood Culture - Preliminary No growth in 3 days 08/13/18 21:00 Blood - Peripheral Aerobic Blood Culture - Preliminary No growth in 3 days 08/13/18 21:00 Blood - Peripheral Anaerobic Blood Culture - Preliminary No growth in 3 days Assessment and Plan (1) Sepsis: Code(s): A41.9 - Sepsis, unspecified organism Status: Acute (2) HTN (hypertension): Code(s): I10 - Essential (primary) hypertension Status: Acute (3) COPD (chronic obstructive pulmonary disease): Code(s): J44.9 - Chronic obstructive pulmonary disease, unspecified Status: Acute Plan This patient is an 83-year-old female with a diagnosis of hypertension, COPD. The patient was brought in to the emergency department with fevers and chills. Patient has been complaining of a cough and also has some shortness of breath on arrival. Systemic inflammatory response syndrome likely secondary to COPD exacerbation. Patient presented with fever and was found to be tachycardic with an elevated WBC count. She was started on supplemental oxygen. She was given IV steroids in the emergency department Chest x-ray was done which is not show any findings consistent with pneumonia however does show hyperinflation We will switch abx to PO Levaquin. Continue breathing treatments [id number]. We will titrate off of supplemental oxygen, keep O2 saturations above 90%. Continue Ellipta. Hypertension Continue enalapril and start Nifedipine 30mg Qday. Tobacco smoking Pt advised to stop smoking. Full code. Lovenox. Progress Note: Quality VTE Deep Vein Thrombosis/Pulmonary Embolism Present on Admission: No _ (1) Sepsis Qualifiers: Sepsis type: (2) COPD (chronic obstructive pulmonary disease) Qualifiers: COPD type: Chronic bronchitis type: Emphysema type: (3) HTN (hypertension) Qualifiers: Hypertension type:
[2018-08-17] MEDS: guaiFENesin 600 MG ER Tablet PO SCH ×2 (08:57→20:51)
[2018-08-17] MEDS: predniSONE 20 MG Tablet PO SCH (08:57)
[2018-08-17] MEDS: levoFLOXacin 750 MG Tablet PO SCH (08:57)
[2018-08-17] MEDS: Enoxaparin Inj 40 MG/0.4 ML Syringe SQ SCH (08:57)
[2018-08-17] MEDS: VILANTEROL INH SCH (09:01)
[2018-08-17] MEDS: UMECLIDINIUM INH SCH (09:01)
[2018-08-17] MEDS: FLUTICASONE FUROATE INH SCH (09:01)
[2018-08-17] MEDS: Senna/Docusate Sodium 8.6/50 MG Tablet PO SCH ×2 (09:01→20:52)
[2018-08-17] MEDS: Acetaminophen 325 MG Tablet PO PRN (20:58)
--- NOTE | 2018-08-17 23:25 | P.PNIM ---
Subjective Interval history: Follow up for COPD exacerbation, HTN. Patient is doing well. Walk test indicates need for home O2. Her O2 sat went down to 87% during walk test. No fever, chills. Physical Exam Vital signs: Vital Signs 08/17/18 00:00 08/17/18 04:00 08/17/18 08:00 Temperature 97.9 F 97.7 F 98.5 F Pulse Rate 77 83 78 Respiratory Rate 18 18 20 Blood Pressure 156/74 H 168/81 H 158/81 H Pulse Oximetry 100 99 97 08/17/18 08:09 08/17/18 12:00 08/17/18 14:51 Temperature 97.8 F Pulse Rate 76 83 89 Respiratory Rate 18 18 18 Blood Pressure 163/79 H Pulse Oximetry 96 97 08/17/18 16:00 08/17/18 20:00 08/17/18 21:35 Temperature 98.4 F 98.5 F Pulse Rate 97 H 85 88 Respiratory Rate 20 20 18 Blood Pressure 167/79 H 158/78 H Pulse Oximetry 94 L 97 95 Intake & Output 08/17/18 08/17/18 08/18/18 06:59 18:59 06:59 Intake Total 480 / 480 960 / 960 Output Total 700 / 700 Balance -220 / -220 960 / 960 Weight 54.3 kg Intake: Oral 480 / 480 960 / 960 Output: Urine 700 / 700 Other: # Voids 3 # Bowel Movements 0 1 Narrative: General patient complains of a mild cough, improving HEENT extraocular movements are intact, clear oropharyngeal mucosa, no JVD Cardiovascular S1-S2 audible, RRR, no murmurs rubs or gallops Respiratory mild wheezing on auscultation bilaterally Abdomen soft, nontender, nondistended, normal bowel sounds Extremities no edema 2+ distal pulses in bilateral upper and lower extremities Neuro no focal neurological deficits. Results Labs CBC & Chem 7: 08/15/18 08:36 08/16/18 06:06 Labs: Microbiology 08/13/18 21:05 Blood - Peripheral Aerobic Blood Culture - Preliminary No growth in 4 days 08/13/18 21:05 Blood - Peripheral Anaerobic Blood Culture - Preliminary No growth in 4 days 08/13/18 21:00 Blood - Peripheral Aerobic Blood Culture - Preliminary No growth in 4 days 08/13/18 21:00 Blood - Peripheral Anaerobic Blood Culture - Preliminary No growth in 4 days Assessment and Plan (1) Sepsis: Code(s): A41.9 - Sepsis, unspecified organism Status: Acute (2) HTN (hypertension): Code(s): I10 - Essential (primary) hypertension Status: Acute (3) COPD (chronic obstructive pulmonary disease): Code(s): J44.9 - Chronic obstructive pulmonary disease, unspecified Status: Acute Plan This patient is an 83-year-old female with a diagnosis of hypertension, COPD. The patient was brought in to the emergency department with fevers and chills. Patient has been complaining of a cough and also has some shortness of breath on arrival. Systemic inflammatory response syndrome likely secondary to COPD exacerbation. Patient presented with fever and was found to be tachycardic with an elevated WBC count. She was started on supplemental oxygen. She was given IV steroids in the emergency department Chest x-ray was done which is not show any findings consistent with pneumonia however does show hyperinflation We will switch abx to PO Levaquin. Continue breathing treatments [id number]. We will titrate off of supplemental oxygen, keep O2 saturations above 90%. Continue Ellipta. Walk test --> Home O2 2L via [place]. Hypertension Continue enalapril and start Nifedipine 30mg Qday. Tobacco smoking Pt advised to stop smoking. Full code. Lovenox. Discharge plan: Discharge once home O2 is arranged. Progress Note: Quality VTE Deep Vein Thrombosis/Pulmonary Embolism Present on Admission: No _ (1) Sepsis Qualifiers: Sepsis type: (2) HTN (hypertension) Qualifiers: Hypertension type: (3) COPD (chronic obstructive pulmonary disease) Qualifiers: COPD type: Chronic bronchitis type: Emphysema type:
[2018-08-18] MEDS: Acetaminophen 325 MG Tablet PO PRN (06:25)
[2018-08-18 08:36] VITALS: BP 150/91; PULSE 78; RESP 18; TEMP 98; O2SAT 98
[2018-08-18] MEDS: levoFLOXacin 750 MG Tablet PO SCH (08:38)
[2018-08-18] MEDS: predniSONE 20 MG Tablet PO SCH (08:38)
[2018-08-18] MEDS: guaiFENesin 600 MG ER Tablet PO SCH (08:38)
[2018-08-18] MEDS: Enoxaparin Inj 40 MG/0.4 ML Syringe SQ SCH (08:39)
[2018-08-18] MEDS: Senna/Docusate Sodium 8.6/50 MG Tablet PO SCH (08:39)
--- NOTE | 2018-08-18 13:58 | P.DS ---
DS: Providers Date of admission: 08/13/18 22:15 Primary care physician: No Primary Care Physician Brief History from admission: This is an 83-year-old female with a PMH of HTN and COPD who was brought to the ER by EMS secondary to SOB in addition to fever/ chills. Denies cough, chest pain or sick contacts. Reports symptoms started suddenly this morning and have gotten progressively worse throughout the day. On arrival, BP 203/41, HR 101, O2 sat 94% on RA, Temp 101.0. WBC 18.5. Chemistry unremarkable. Lactic Acid 1.0. UA negative. CXR with no acute findings. On exam, pt w/ dyspnea w/ speech, occasional wheezing, few rhonchi. S/p Vanc/Azactam in ER. DS: Diagnosis Discharge Diagnosis (1) Sepsis: Status: Acute (2) HTN (hypertension): Status: Acute (3) COPD (chronic obstructive pulmonary disease): Status: Acute DS: Summary This patient is an 83-year-old female with a diagnosis of hypertension, COPD. The patient was brought in to the emergency department with fevers and chills. Patient has been complaining of a cough and also has some shortness of breath on arrival. Systemic inflammatory response syndrome likely secondary to COPD exacerbation. Patient presented with fever and was found to be tachycardic with an elevated WBC count. She was started on supplemental oxygen. She was given IV steroids in the emergency department Chest x-ray was done which is not show any findings consistent with pneumonia however does show hyperinflation We will switch abx to PO Levaquin. Continue breathing treatments [id number]. We will titrate off of supplemental oxygen, keep O2 saturations above 90%. Continue Ellipta. Walk test --> Home O2 2L via NC. Hypertension Continue enalapril and start Nifedipine 30mg Qday. Tobacco smoking Pt advised to stop smoking. Full code. Lovenox. Overall, patient improved and continued to do well. O2 arranged. Time Spent with Patient Total time spent providing and/or coordinating discharge services: Less than 30 minutes Quality: VTE Deep Vein Thrombosis/Pulmonary Embolism Present on Admission: No Exam Narrative Exam Narrative: General patient complains of a mild cough, improving HEENT extraocular movements are intact, clear oropharyngeal mucosa, no JVD Cardiovascular S1-S2 audible, RRR, no murmurs rubs or gallops Respiratory mild wheezing on auscultation bilaterally Abdomen soft, nontender, nondistended, normal bowel sounds Extremities no edema 2+ distal pulses in bilateral upper and lower extremities Neuro no focal neurological deficits. Results Impressions ITS Impressions Chest X-Ray 08/13/18 20:52 CONCLUSION: No acute findings. Hyperaerated lungs, stable. Discharge Plan Discharge Disposition Patient Disposition: Discharge Home Discharge Condition Condition: Good Discharge Order Discharge Orders: Discharge Order (Routine); Ordered 08/17/18 Ordered By: Marino Gracia Discharge Details Anticipated Discharge Date: 08/17/18 Physicians Team Primary Care Provider: Primary Care Sujatha Morales Attending Provider: Marino Gracia Rxs /Orders / Referrals /Forms Prescriptions: New nifedipine 30 mg Tablet Extended Release 24hr 30 mg PO DAILY Qty: 30 RF: 3 prednisone 20 mg Tablet 20 mg PO DAILY Qty: 7 RF: 0 levofloxacin 750 mg Tablet 750 mg PO DAILY Qty: 5 RF: 0 Continue enalapril maleate 20 mg Tablet 20 mg PO DAILY RF: 0 albuterol sulfate 0.63 mg/3 mL Solution For Nebulization 0.63 mg INHALATION QID PRN (Reason: sob) RF: 0 [id number] [Trelegy Ellipta] 100-62.5-25 mcg Blister With Device 1 inh INHALATION DAILY RF: 0 Ambulatory Orders / Order Sets / DME: Oxygen Tank (2 liter) (Routine) Location: Determined by Patient Ordered By: Marino Gracia Referrals: Primary Care Sujatha Morales [Primary Care Provider] - See Instructions (Please make a follow up apt with [facility] [phone] for one week after discharge) Discharge Instructions Patient Printed Instructions: Nifedipine (By mouth), Prednisone (By mouth), Levofloxacin (By mouth), Using Oxygen at Home (DC) Post Discharge Care Plan Care Plan Goals: Discharge Care Plan Goals for COPD You have been diagnosed with chronic obstructive pulmonary disease (COPD). This is a name given to a group of diseases that limit the flow of air in and out of your lungs. This makes it harder to breathe. With COPD, you are also more likely to get lung infections. COPD includes chronic bronchitis and emphysema. COPD is most often caused by heavy, long-term cigarette smoking. Directions to Meet your Goals: 1. Quit smoking: * If you smoke, quit. It is the best thing you can do for your COPD and your overall health. * Join a stop-smoking program. There are even telephone, text message, and Internet programs to help you quit. * Ask your doctor about medicines or other methods to help you quit. * Ask family members to quit smoking as well. * Don't allow people to smoke in your home, in your car, or when they are around you. 2. Protect yourself from infection: * Wash your hands often. Do your best to keep your hands away from your face. Most germs are spread from your hands to your mouth. * Get a flu shot every year. Also ask your provider about pneumonia vaccines. * Avoid crowds. It's especially important to do this in the winter when more people have colds and flu. * To stay healthy, get enough sleep, exercise regularly, and eat a balanced diet. You should: -Get about 8 hours of sleep every night. -Try to exercise for at least 30 minutes on most days. -Have healthy foods including fruits and vegetables, 100% whole grains, lean meats and fish, and low-fat dairy products. -Try to stay away from foods high in fats and sugar. 3. Take your medicines: * Take your medicines exactly as directed. Don't skip doses. 4. Manage you stress: Stress can make COPD worse. Use this stress management technique: * Find a quiet place and sit or lie in a comfortable position. * Close your eyes and perform breathing exercises for several minutes. 5. Pulmonary rehabilitation: * Pulmonary rehab can help you feel better. These programs include exercise, breathing techniques, information about COPD, counseling, and help for smokers. * Ask your doctor or your local hospital about programs in your area. 6. When to call your doctor: Call doctor immediately if you have any of the following: Shortness of breath, wheezing, or coughing Increased mucus Yellow, green, bloody, or smelly mucus Fever or chills Tightness in your chest that does not go away with rest or medicine An irregular heartbeat or a feeling that your heart is beating very fast Swollen ankles 7. Follow-up: Do Not miss your follow-up appointment. Keep up with all your appointments and yearly check ups Status ED Status: Left Department Discharge Information Discharge Date/Time: 08/18/18 10:38
== END 2018-08-18 10:38 | disposition home or self-care (01) | DRG 872 ==
LOC: NEPE 20:22 → NEDA 22:15 → N04 08-14 00:30 → NEDA 08-14 00:40
PROVIDERS: ADMIT Hospitalist; ATTEND Hospitalist
DX: Z88.0 Allergy status to penicillin; Z79.899 Other long term (current) drug therapy; R00.0 Tachycardia, unspecified; Z88.5 Allergy status to narcotic agent; Z99.81 Dependence on supplemental oxygen; F17.210 Nicotine dependence, cigarettes, uncomplicated; I10 Essential (primary) hypertension; J44.1 Chronic obstructive pulmonary disease with (acute) exacerbation; Z87.01 Personal history of pneumonia (recurrent); A41.9 Sepsis, unspecified organism
CPT/HCPCS: 71010; 71045; 80048; 80053; 81001; 82565; 83605; 83735; 85025; 87040; 87275; 87276; 87804; 90774; 90784; 93005; 94618; 94620; 94640; 94664; 94665; 96374; 99291; C8952; J1650; J2930; J3370; J7030; J7050; J7506; J7512